=== PATIENT | male | born 1980 | race Hispanic/Latino ===

== ENCOUNTER 2016-07-10 01:01 | Emergency (ER) | payer SELFPAY ==
[~2016-07-10] VITALS: Ht 185.4 cm; Wt 95.2 kg
[2016-07-10 01:08] VITALS: BP 138/89
== END 2016-07-10 13:13 | disposition left against medical advice (07) ==
LOC: EME 01:01
DX: M54.9 Dorsalgia, unspecified (principal); V99.XXXA Unspecified transport accident, initial encounter; Z53.21 Procedure and treatment not carried out due to patient leaving prior to being seen by health care provider